=== PATIENT | male | born 1990 | race Caucasian/White ===

== ENCOUNTER 2018-03-16 05:45 | Day surgery (SDC) | payer OTHER ==
[~2018-03-16] VITALS: Ht 172.7 cm; Wt 91.6 kg
--- NOTE | ~2018-03-16 | OR ---
[facility] [address] [place], [place] [address] Draft DATE OF OPERATION: 03/16/2018 SURGEON: Joe Dasilva MD PREOPERATIVE DIAGNOSIS: Recurrent lateral dislocation, left patella. POSTOPERATIVE DIAGNOSIS: Recurrent lateral dislocation, left patella. PROCEDURE: Medial patellofemoral ligament reconstruction using allograft. ANESTHESIA: Spinal with sedation. SPECIMENS AND COMPLICATIONS: There were no specimens or complications. TOURNIQUET TIME: About an hour and 20 minutes. WHAT WAS DONE: The patient was taken to the operating room. After anesthesia was induced and airway secured, the patient was positioned, prepped and draped in a routine sterile fashion. A semitendinosus graft was taken from the freezer and thawed. We then whip-stitched either end with 2-0 FiberWire. After gently trimming the graft, we placed back in a saline solution. The leg was then exsanguinated with an Esmarch bandage. Pneumatic tourniquet was inflated to 300 mmHg pressure. We then made an incision over the medial aspect of the patella. Skin was divided sharply. Subcutaneous tissue was bluntly spread. We peeled the small portion of the retinaculum off the medial bony aspect of the patella. We then placed two guidewires, overdrilled them, and then secured the graft with two swivel locks. We then used a blunt curved clamp to create a tunnel down to the medial femoral epicondylar region. After we had created an adequate tunnel, we placed the medial patellofemoral ligament for radiologic lucent guide over the medial aspect and localized to the medial femoral condyle at the posterior aspect of the cortex on the top of Blumensaat's line. Once we were happy with the alignment and position, we marked it on the skin with a skin marker. We then made a medial incision and carried it all the way down to the bone. We then repositioned the guide and once we were happy with the position of the guide, drilled the Beath pin through the medial femoral condyle PATIENT NAME: KEISHA MANN OPERATIVE REPORT DATE OF : [birth year] REPORT #: [id number] PHYSICIAN: JOE DASILVA MD PCP: FLORES GRACIA MD REPORT IS CONFIDENTIAL AND NOT TO BE RELEASED WITHOUT AUTHORIZATION [facility] [address] [place], [place] [address] Draft and out the lateral cortex. This was then overdrilled with the mushroom headed reamer. We then passed a #1 FiberWire suture through the loop of the graft and brought it underneath the subcutaneous tunnel and brought out the posterior medial incision. We then placed the suture limbs into the Beath pin and delivered them out the lateral side. We then tensioned the graft so that we could move the patella laterally about one-third of its transverse diameter. The knee was then cycled and we did not appear to capture the knee. We then achieved posteromedial fixation with a single BioScrew. The wound was gently irrigated and closed in a standard fashion. Sterile dressings applied. He was placed in a drop-lock T Scope knee brace locked in full extension. He was awakened and taken to the recovery room where he arrived in stable condition. Counts were correct and antibiotic protocols were followed. Joe Dasilva MD WFB/MODL /[id number] Copies: ~ PATIENT NAME: KEISHA MANN OPERATIVE REPORT DATE OF : [birth year] REPORT #: [id number] PHYSICIAN: JOE DASILVA MD PCP: FLORES GRACIA MD REPORT IS CONFIDENTIAL AND NOT TO BE RELEASED WITHOUT AUTHORIZATION
[2018-03-16] MEDS ORDERED: PROPRANOLOL HCL10 MG PO (05:57)
[2018-03-16] MEDS ORDERED: TRIPLE ANTIB28.35 GM TOP (05:58)
[2018-03-16] MEDS ORDERED: HYDROCORTISONE30 G2 TOP (05:59)
--- NOTE | 2018-03-16 06:17 | NUR ---
PATIENT READY FOR SURGERY, GUARDS IN ROOM WITH PATIENT.
--- NOTE | 2018-03-16 09:10 | NUR ---
03/16/18 0910 Ysabel Alan 0878-PATIENT ARRIVED TO PACU ON 10L MASK WEANED TO 6L MASK O2 SAT 100% PATIENT REACTIVE TO VERBAL STIMULI VERY DROWSY EYES OPEN. SPINAL ANESTHETIC. PALPABLE LEFT PEDAL PULSE. TBRACE IN PLACE. ELEVATED ON PILLOW CDI. GOOD CAP REFILL AND WARMTH. GUARD AT BEDSIDE. 0909-PATIENT DROWSY REACTIVE TO VOICE APNEA PERIODS ENCOURAGED TO TAKE DEEP BREATHES FOLLOWS COMMANDS. DENIES PAIN OR NAUSEA. 6L MASK O2 SAT 100%
--- NOTE | 2018-03-16 09:59 | NUR ---
PATIENT ARRIVED BACK TO ROOM AFTER RECOVERY. PATIENT DENIES PAIN OR NAUSEA AT THIS TIME, SPINAL IS IN EFFECT, NO MOVEMENT OR SENSATION TO LEFT LEG, BEGINNING SENSATION AND ABLE TO MOVE TOE ON RIGHT LEG. LEFT KNEE IS DRESSED WITH JOSHUA, BRACE INTACT, NO DRAINAGE NOTED, LEFT FOOT IS WARM WITH PALPABLE PULSE. PATIENT GIVEN ICE CHIPS TO START.
[2018-03-16] MEDS ORDERED: NORCO 10-325 T1 EACH PO (10:26)
--- NOTE | 2018-03-16 10:53 | NUR ---
PATIENT VITALS ARE STABLE, HEAD OF BED ELEVATED AND PATIENT IS TOLERATING WELL. LEFT KNEE DRESSING IS CDI, PATIENT REPORTS TINGLING SENSATION TO LOWER EXTREMITIES AND IS ABLE TO MOVE TOES BILATERALLY. PATIENT TOLERATING PO INTAKE OF JELLO AND CRACKERS. NO NAUSEA OR PAIN NOTED. X2 GUARDS AT BEDSIDE.
--- NOTE | 2018-03-16 12:16 | NUR ---
PATIENT SITTING AT BEDSIDE TO ATTEMPT TO VOID, BEGINNING WITH INCONTINENT VOID WHEN HE STOOD UP, PATIENT CONTINUED TO VOID IN URINAL. PATIENT ABLE TO STAND UP WITH ONE PERSON ASSIST.
--- NOTE | 2018-03-16 12:46 | NUR ---
PATIENT DISCHARGED VIA WHEELCHAIR TO [facility]. REPORT CALLED TO [facility].
== END 2018-03-16 12:45 | disposition home or self-care (01) ==
LOC: DS 05:45 → OPS 05:45 → DS 06:45 → OPS 06:45
PROVIDERS: Orthopaedic Surgery
PROC: 0SQD0ZZ Repair Left Knee Joint, Open Approach (ICD-10-PCS; principal; 2018-03-16 06:45)
DX: M22.02 Recurrent dislocation of patella, left knee (principal); E66.9 Obesity, unspecified; Z68.30 Body mass index [BMI] 30.0-30.9, adult; Z79.899 Other long term (current) drug therapy; Z79.2 Long term (current) use of antibiotics; Z87.891 Personal history of nicotine dependence
CPT/HCPCS: 01400; 73560; C1713; C1762; J0690; J1100; J1885; J2250; J2405; J2704; J2765; J3010; J7120